=== PATIENT | male | born 1970 | race Caucasian/White ===

== ENCOUNTER 2017-04-29 16:30 | Emergency (ER) | payer MEDICAID, MEDICARE, OTHER ==
[~2017-04-29] VITALS: Ht 175.3 cm; Wt 103.5 kg
[2017-04-29] MEDS ORDERED: IBUP-1022 PO (16:43)
[2017-04-29] MEDS ORDERED: RA A (16:43)
[2017-04-29] MEDS ORDERED: ATOR1TAB21 (16:43)
[2017-04-29] MEDS ORDERED: SERT-155 (16:43)
[2017-04-29] MEDS ORDERED: NITR0.4S14 (16:44)
[2017-04-29 16:52] VITALS: BP 146/88
--- NOTE | 2017-04-29 17:24 | REP ---
Clinical: Trauma/injury. Loss of consciousness . Comparison: 04/24/2011 . Findings: The ventricles, sulci, and cisterns are normal in position and appearance. Patterson-white differentiation is maintained. No acute intracranial hemorrhage, mass/mass effect, pathology or trauma/injury. No evidence for acute infarction. No extra-axial fluid collection. Calvarium is intact. Paranasal sinuses and mastoid air cells are clear. Impression: Normal noncontrast head CT. No evidence for acute intracranial pathology or trauma/injury. Signed by Elbert Chauhan MD 04/29/2017 05:16 P
--- NOTE | 2017-04-29 17:50 | REP ---
Clinical: Trauma. Technique: AP and axial views of the left clavicle. Findings: Mid clavicular shaft fracture is appreciated with complete displacement and foreshortening. Overlying soft tissue swelling. Impression: Mid clavicular shaft fracture Signed by Elbert Chauhan MD 04/29/2017 05:41 P
--- NOTE | 2017-04-29 17:52 | REP ---
Clinical: Trauma . Technique: AP, lateral, bilateral oblique views of the left elbow. Findings: No acute fracture or dislocation is appreciated. Joint spaces and surrounding soft tissues appear normal. Lateral view demonstrates normal positioning to the anterior and posterior fat pads without evidence for effusion/hemarthrosis. No subcutaneous emphysema or foreign body identified. Impression: Normal left elbow radiographs. Signed by Elbert Chauhan MD 04/29/2017 05:43 P
== END 2017-04-29 18:20 | disposition home or self-care (01) ==
LOC: M ED 16:30
DX: S42.022A Displaced fracture of shaft of left clavicle, initial encounter for closed fracture (principal); W19.XXXA Unspecified fall, initial encounter; Y92.009 Unspecified place in unspecified non-institutional (private) residence as the place of occurrence of the external cause; Y93.89 Activity, other specified; Y99.8 Other external cause status; J30.1 Allergic rhinitis due to pollen; Z79.899 Other long term (current) drug therapy